=== PATIENT | male | born 1985 ===

== ENCOUNTER 2022-07-24 20:27 | Emergency (ER) | payer OTHER ==
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
[2022-07-24 23:40] VITALS: BP 119/88; TEMP 98.2; O2SAT 99
== END 2022-07-24 22:23 | disposition home or self-care (01) ==
LOC: ER 20:27
DX: S29.012A Strain of muscle and tendon of back wall of thorax, initial encounter (principal)
CPT/HCPCS: 99283